=== PATIENT | male | born 1980 | race Caucasian/White ===

== ENCOUNTER 2016-09-21 10:13 | Emergency (ER) | payer MEDICAID ==
[~2016-09-21] VITALS: Wt 101.5 kg
[2016-09-21] MEDS ORDERED: ONDANSETRON (ODT) 4 MG TAB ODT STA (10:28)
[2016-09-21] MEDS ORDERED: HYDROCODONE/APAP (5/325) TAB PO ONE (10:30)
--- NOTE | 2016-09-21 11:00 | ERD ---
ER Documentation Chief Complaint Date/Time DATE: 09/21/16 TIME: 10:58 Chief Complaint RIGHT RIB/SIDE PAIN, ONSET TODAY, NO INJURY HPI 36-year-old male history of obesity otherwise healthy presents with right-sided abdominal pain starting today about 3-4 hours ago. He states that the same pain occurred about a month ago but was sharp and improved with ibuprofen. It is recurring pain, going from the right lower chest to the right upper abdomen, worse with movement. Has not tried anything for pain so far today. Denies fevers, chills, nausea, vomiting. Denies shortness of breath. ROS All systems reviewed and are negative except as per history of present illness. Medications Home Meds Active Scripts Ibuprofen* (Motrin*) 600 Mg Tab, 600 MG PO Q6, #30 TAB Prov:JOSE GASTON PA-C 09/21/16 Hydrocodone/Acetaminophen (Oliver 5-325 Tablet) 1 Each Tablet, 1 TAB PO Q6H Y for PAIN, #7 TAB Prov:JOSE GASTON PA-C 09/21/16 Allergies Allergies: Coded Allergies: No Known Drug Allergies (Verified Allergy, Unknown, 09/21/16) PMhx/Soc Medical and Surgical Hx: pt denies Medical Hx, pt denies Surgical Hx Hx Alcohol Use: Yes (socially, weekly) Hx Substance Use: No Hx Tobacco Use: Yes (quit in 2008) Smoking Status: Former smoker Physical Exam Vitals Vital Signs Date Time Temp Pulse Resp B/P Pulse Ox O2 Delivery O2 Flow Rate FiO2 09/21/16 14:46 98.1 78 18 142/78 99 Room Air 09/21/16 10:16 96.6 60 17 153/91 99 Physical Exam General: Well-developed, well-nourished. The patient appears in no acute distress. HEENT: Head is normocephalic, atraumatic. No scleral icterus. Neck: Supple. Nontender. Lungs: Clear to auscultation. Normal air movement. Heart: Regular rate and rhythm. S1 and S2 are normal. No murmurs, gallops, or rubs. Abdomen: Soft, tender in the right upper quadrant, nondistended. Bowel sounds are normoactive. No McBurney's tenderness, no masses, no peritoneal signs or guarding Extremities: No clubbing or cyanosis. Normal pulses. Moving extremities x 4. No weakness. Neurologic: Alert and oriented 3. No focal deficits. Skin: Normal turgor. No rash or lesions. Result Diagram: 09/21/16 1045 09/21/16 1045 Results 24 hrs Laboratory Tests Test 09/21/16 10:45 09/21/16 14:33 White Blood Count 9.610^3/ul Red Blood Count 5.2710^6/ul Hemoglobin 15.0g/dl Hematocrit 44.5% Mean Corpuscular Volume 84.4fl Mean Corpuscular Hemoglobin 28.5pg Mean Corpuscular Hemoglobin Concent 33.7g/dl Red Cell Distribution Width 12.3% Platelet Count 15991^3/UL Mean Platelet Volume 9.6fl Neutrophils % 57.2% Lymphocytes % 33.2% Monocytes % 7.6% Eosinophils % 1.0% Basophils % 0.6% Nucleated Red Blood Cells % 0.0/100WBC Neutrophils # 5.510^3/ul Lymphocytes # 3.210^3/ul Monocytes # 0.710^3/ul Eosinophils # 0.110^3/ul Basophils # 0.110^3/ul Nucleated Red Blood Cells # 0.010^3/ul Sodium Level 145mmol/L Potassium Level 4.4mmol/L Chloride Level 103mmol/L Carbon Dioxide Level 26mmol/L Anion Gap 20 Blood Urea Nitrogen 15mg/dl Creatinine 0.85mg/dl Glucose Level 107mg/dl Calcium Level 9.6mg/dl Total Bilirubin 0.1mg/dl Direct Bilirubin 0.00mg/dl Indirect Bilirubin 0.1mg/dl Aspartate Amino Transf (AST/SGOT) 28IU/L Alanine Aminotransferase (ALT/SGPT) 50IU/L Alkaline Phosphatase 66IU/L B-Type Natriuretic Peptide 38PG/ML Total Protein 8.1g/dl Albumin 4.8g/dl Globulin 3.30g/dl Albumin/Globulin Ratio 1.45 Lipase 69U/L Bedside Urine pH (LAB) 5.5 Bedside Urine Protein (LAB) Negative Bedside Urine Glucose (UA) Negative Bedside Urine Ketones (LAB) Negative Bedside Urine Blood Trace-lysed Bedside Urine Nitrite (LAB) Negative Bedside Urine Leukocyte Esterase (L Negative Current Medications Medications (Trade) Dose Ordered Sig/Branden Route PRN Reason Start Time Stop Time Status Last Admin Dose Admin Acetaminophen/ Hydrocodone Bitart (Oliver (5/325)) 1 tab ONCE ONCE PO 09/21/16 10:30 09/21/16 10:31 DC 09/21/16 10:42 Ondansetron HCl (Zofran Odt) 4 mg ONCE STAT ODT 09/21/16 10:28 09/21/16 10:31 DC 09/21/16 10:42 DIAGNOSTIC IMAGING REPORT Patient: SINDHU WARD : 1980 Age: 36 Sex: M MR #: [id number] DOS: 09/21/16 0000 Ordering MD: JOSE GASTON PA-C Location: [facility] Room/Bed: PROCEDURE: XR Chest. CLINICAL INDICATION: RUQ PAIN TECHNIQUE: Single frontal view of the chest was obtained COMPARISON: None FINDINGS: The cardiac silhouette is mildly enlarged. No pneumothorax, significant pleural effusion, or parenchymal consolidation is identified. There is no evidence of significant pulmonary vascular congestion. There are degenerative changes of the spine. IMPRESSION: 1. No evidence of an acute cardiopulmonary process. 2. Mild cardiomegaly. RPTAT: QQ Physician Regi Date Time Electronically viewed and signed by Physician Regi on 09/21/2016 11: 35 RC/ CC: JOSE GASTON PA-C PROCEDURE: US Abdomen. CLINICAL INDICATION: Abdominal pain TECHNIQUE: Multiple real-time images were acquired of the patient's abdomen and retroperitoneum utilizing a high resolution transducer. COMPARISON: None FINDINGS: The liver demonstrates diffusely increased echogenicity, suggesting diffuse hepatic steatosis. The liver is borderline enlarged, measuring up to 17.4 cm at the right midclavicular line. No discrete hepatic mass is seen within the imaged portions of the liver. There is no evidence of intrahepatic biliary ductal dilatation. The gallbladder contains several small mobile shadowing gallstones. The gallbladder wall measures 1.2 mm in thickness, within normal limits. No pericholecystic fluid. Sonographic Jama's sign was reported as negative. The common bile duct is minimally dilated, measuring up to 7.9 mm. The pancreas was obscured by overlying bowel gas and can not be adequately evaluated. The right kidney measures 11.9 cm in length. The right kidney demonstrates normal renal cortical echogenicity. No hydronephrosis or shadowing renal calculus is seen on the right. IMPRESSION: 1. Cholelithiasis without sonographic evidence of acute cholecystitis. 2. There is mild dilatation of the common bile duct which measures up to 7.9 mm. The distal common bile duct could not be adequately imaged. MRCP may provide further evaluation, as clinically indicated. 3. Diffuse hepatic steatosis. 4. Borderline hepatomegaly. RPTAT: QQ Signed By: Myles Pickens M.D 09/21/2016 1:59:19 PM Procedures/MDM ED course: Patient was given Oliver, Zofran. MDM: 36-year-old male comes in with right upper quadrant and right lower chest, comes in with biliary colic, hepatic steatosis. Patient's pain was controlled with Oliver in emergency department, as well as Zofran. Patient has evidence of cholelithiasis without evidence of cholecystitis. Borderline enlarged common bile duct. However patient does not have any fever, jaundice, leukocytosis, transaminitis or elevated lipase indicate cholangitis, choledocholithiasis or cholecystitis. Chest x-ray was performed that showed incidentally mild cardiomegaly, BNP is normal. Patient's pain is likely consistent with biliary colic. He was advised of his findings and he is to follow-up with a general surgeon. Departure Diagnosis: Primary Impression: Biliary colic Additional Impression: Fatty liver Condition: JOSE Galaviz PA-C Sep 21, 2016 10:59
[2016-09-21 11:20] LABS: BASOPHIL # 0.1 10^3/ul (0.0-0.1); BASOPHILS % 0.6 % (0.0-2.0); EOSINOPHILS # 0.1 10^3/ul (0.0-0.5); HEMATOCRIT 44.5 % (42.0-52.0); LYMPHOCYTES # 3.2 10^3/ul (0.8-2.9); LYMPHOCYTES % 33.2 % (15.0-51.0); MEAN CORPUSCULAR HEMOGLOBIN 28.5 pg (29.0-33.0); MEAN CORPUSCULAR HGB CONC 33.7 g/dl (32.0-37.0); MEAN CORPUSCULAR VOLUME 84.4 fl (82.0-101.0); MEAN PLATELET VOLUME 9.6 fl (7.4-10.4); MONOCYTE # 0.7 10^3/ul (0.3-0.9); MONOCYTES % 7.6 % (0.0-11.0); NEUTROPHIL # 5.5 10^3/ul (1.6-7.5); NEUTROPHILS % 57.2 % (39.0-77.0); PLATELET COUNT 305 10^3/UL (140-415); RED BLOOD COUNT 5.27 10^6/ul (4.70-6.10); RED CELL DISTRIBUTION WIDTH 12.3 % (11.5-14.5); WHITE BLOOD COUNT 9.6 10^3/ul (4.8-10.8)
--- NOTE | 2016-09-21 11:35 | RADRPT ---
PROCEDURE: XR Chest. CLINICAL INDICATION: RUQ PAIN TECHNIQUE: Single frontal view of the chest was obtained COMPARISON: None FINDINGS: The cardiac silhouette is mildly enlarged. No pneumothorax, significant pleural effusion, or parenchymal consolidation is identified. There is no evidence of significant pulmonary vascular congestion. There are degenerative changes of the spine. IMPRESSION: 1. No evidence of an acute cardiopulmonary process. 2. Mild cardiomegaly. RPTAT: QQ Physician Regi Date Time Electronically viewed and signed by Physician Regi on 09/21/2016 11:35 RC/
[2016-09-21 11:43] LABS: ALBUMIN 4.8 g/dl (3.3-4.9); ALBUMIN/GLOBULIN RATIO 1.45; BILIRUBIN,INDIRECT 0.1 mg/dl (0-1.1); BILIRUBIN,TOTAL 0.1 mg/dl (0.2-1.3); CALCIUM 9.6 mg/dl (8.4-10.2); CREATININE 0.85 mg/dl (0.61-1.24); POTASSIUM 4.4 mmol/L (3.5-5.1); TOTAL PROTEIN 8.1 g/dl (6.1-8.1)
[2016-09-21 14:27] LABS: URINE BLOOD (Dip) POC Trace-lysed (NEGATIVE)
[2016-09-21] MEDS ORDERED: IBUP-1542 PO (14:36)
[2016-09-21] MEDS ORDERED: HYDR-906 PO ×2 (14:36→18:17)
[2016-09-21 14:46] VITALS: BP 142/78; PULSE 78; RESP 18; TEMP 98.1
--- NOTE | 2016-09-21 18:18 | EN ---
Date/Time of Note Date/Time of Note DATE: 09/21/16 TIME: 18:17 ER Progress Note [place] script was reprinted as patient returned with original script and it was not signed. Original script was thrown away in shredding box and patient was issued a new one. ADELSO BARRAZA Sep 21, 2016 18:18
== END 2016-09-21 14:46 | disposition home or self-care (01) ==
LOC: FTE 10:13
DX: K80.50 Calculus of bile duct without cholangitis or cholecystitis without obstruction (principal); K76.0 Fatty (change of) liver, not elsewhere classified; E66.9 Obesity, unspecified; Z87.891 Personal history of nicotine dependence
CPT/HCPCS: 71010; 76705; 80053; 81003; 83690; 83880; 85025; Z7610; 36415

== ENCOUNTER 2017-02-21 03:04 | Emergency (ER) | END 2017-02-21 09:13 | disposition home or self-care (01) ==

== ENCOUNTER 2017-08-31 15:04 | Emergency (ER) | END 2017-09-01 12:08 | disposition left against medical advice (07) ==